=== PATIENT | male | born 1995 | race Two or more races ===

== ENCOUNTER 2025-06-09 12:55 | Emergency (ER) | payer SELFPAY ==
[~2025-06-09] VITALS: Ht 167.6 cm; Wt 99.1 kg
[2025-06-09 12:58] VITALS: BP 138/84; PULSE 94; RESP 18; TEMP 98.1; O2SAT 99
== END 2025-06-09 14:47 | disposition left against medical advice (07) ==
LOC: ER 12:57
DX: S61.412A Laceration without foreign body of left hand, initial encounter (principal); Z53.21 Procedure and treatment not carried out due to patient leaving prior to being seen by health care provider; X58.XXXA Exposure to other specified factors, initial encounter; Y93.89 Activity, other specified; Y92.89 Other specified places as the place of occurrence of the external cause; Y99.8 Other external cause status